=== PATIENT | male | born 1995 | race Caucasian/White ===

== ENCOUNTER 2016-11-27 11:12 | Emergency (ER) | payer BC, OTHER ==
[~2016-11-27] VITALS: Ht 177.8 cm; Wt 111.6 kg
[2016-11-27 11:17] VITALS: TEMP 36.9; Ht 177.8 cm; Wt 111.6 kg
[2016-11-27] MEDS ORDERED: SODIUM CHLORIDE 0.9% 1000ML 1,000 ML IV STA (12:13)
[2016-11-27 12:43] LABS: BASO % 0.4 %; BASO ABS # 0.03 K/uL (0-0.2); COMPLETE YES; EOS % 2.9 %; HEMATOCRIT 44.6 % (42-52); IG% 1.9 %; LYMPH % 26.5 %; MEAN CELL VOLUME 78.4 fL (80-100); MEAN CORPUSCULAR HEMOGLOBIN 27.1 pg (25-34); MEAN CORPUSCULAR HGB CONC 34.5 g/dl (32-36); MEAN PLATELET VOLUME 11.1 fL (7.4-10.4); MONO % 5.4 %; NEUT % 62.9 %; PLATELET COUNT 222 K/uL (130-400); RED BLOOD COUNT 5.69 M/uL (4.7-6.1); WHITE BLOOD COUNT 8.31 K/uL (4.8-10.8)
--- NOTE | 2016-11-27 12:59 | DIAGNOSTIC IMAGING REPORT ---
SOFT TISSUE NECK CLINICAL HISTORY: 20 years-old Male presenting with THROAT SWELLING. TECHNIQUE: Frontal and lateral views of the neck were obtained. COMPARISON: None. FINDINGS: Straightening of normal cervical lordosis likely positional. Normal cervical spine. No prevertebral soft tissue swelling. Soft tissue density in the region of the valleculae could suggest prominent tonsillar adenoidal tissue. No swelling of the epiglottis. The aryepiglottic folds are not as clearly delineated. Airway patent. Lung apices clear. IMPRESSION: Suggestion of prominent tonsillar adenoidal tissue. Electronically signed by: Gabriel Adame M.D. 11/27/2016 12:57 PM Dictated Date/Time: 11/27/2016 12:55 PM
[2016-11-27 13:02] LABS: BUN/CREATININE RATIO 17.6 (10-20); CALCIUM 9.2 mg/dl (8.5-10.1); CREATININE 0.83 mg/dl (0.60-1.40)
[2016-11-27 13:05] LABS: ALB/GLOB RATIO 1.2 (0.9-2); PARTIAL THROMBOPLASTIN RATIO 1.1; PROTHROMBIN TIME (PATIENT) 10.7 SECONDS (9.0-12.0)
[2016-11-27 13:31] LABS: URINE APPEARANCE CLEAR (CLEAR); URINE BILIRUBIN NEG (NEG); URINE COLOR YELLOW; URINE NITRITE NEG (NEG); URINE SPECIFIC GRAVITY 1.022 (1.000-1.030); UROBILINOGEN NEG (NEG)
[2016-11-27 13:40] LABS: MANUAL MICROSCOPIC REQUIRED? NO; REVIEW REQ? NO
[2016-11-27 13:54] LABS: BENZODIAZEPINE, URINE NEG (NEG); COCAINE,URINE NEG (NEG); PHENCYCLIDINE, URINE NEG (NEG)
--- NOTE | 2016-11-27 15:13 | DIAGNOSTIC IMAGING REPORT ---
L VENOUS DOPP LOWER EXT UNILAT CLINICAL HISTORY: 20 years-old Male presenting with LEFT CALF PAIN . TECHNIQUE: Real-time grayscale and color and spectral Doppler ultrasound imaging of the veins of the left lower extremity was performed. Compression and augmentation were also utilized. COMPARISON: None. FINDINGS: Left: Common femoral vein: Patent. Femoral vein: Patent. Greater saphenous vein: Patent. Popliteal vein: Patent. Calf veins: Patent. Other: None. IMPRESSION: No evidence of deep venous thrombosis. Electronically signed by: Gabriel Adame M.D. 11/27/2016 3:12 PM Dictated Date/Time: 11/27/2016 3:11 PM
--- NOTE | 2016-11-27 15:40 | EMERGENCY ROOM VISIT NOTE ---
ED Visit Note First contact with patient: 11:48 CHIEF COMPLAINT: Sharp pain in left calf, sensation of swelling in his throat and shortness of breath. HISTORY OF PRESENT ILLNESS: Patient is an otherwise healthy 20-year-old white male who presents to the emergency department by ALS ambulance for evaluation of left calf pain, with a sensation of swelling in his throat and shortness of breath. His symptoms started about an hour prior to arrival. 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 He states that he noted a sharp pain in his left calf. He states the pain is only to touch, he thinks it was being caused by his jeans rubbing against his leg. He states that when he got the sharp pain he began to feel short of breath and have a sensation that his throat was swelling, making it difficult for him to breathe. He sat down and rested, tried to drink some water, but his symptoms did not improve. He looked at his calf, as he thought that he might have been bitten or stung by something, but did not note any skin injury. He states that he thought the area was a little bit red initially, but that has resolved. He still does note a sharp, localized pain in the left calf to palpation. He is able to walk and bear weight without difficulty. He does have a sense of some swelling in his throat presently, but does not have any difficulty speaking or swallowing. He reports that he is getting over a cold. He denies any chest pain, palpitations or pleuritic symptoms. No skin rashes or hives. He has never had reactions similar to this previously. He felt perfectly well until the incident started about an hour ago. No DVT or PE risk factors or family history. REVIEW OF SYSTEMS: Review of systems as per HPI. All other systems reviewed were negative. 10 systems reviewed. PMH: Electronic medical records are reviewed and summarized as above/below. See Problem List. SOCIAL HISTORY: Patient lives at home. He does not smoke. PHYSICAL EXAM: Vital Signs: Reviewed Nurse's notes. CONSTITUTIONAL: Patient is a pleasant, well-appearing 20-year-old white male who was awake and alert and sitting semiupright on the gurney in no acute distress. No stridor, no conversational dyspnea. He is able to speak in full sentences without difficulty. EYES: Pupils equal, round, reactive to light and accommodation. EOMs intact without nystagmus. Sclera are anicteric. ENT: Tympanic membranes intact, with normal landmarks. External canals are clear. Oral and nasopharynx are clear. Mucous membranes are moist, no lesions , tongue and gums appear normal. NECK: No bruits auscultated. Supple without lymphadenopathy. No thyromegaly. No meningeal signs. Full active range of motion without discomfort. CARDIOVASCULAR: Regular rate and rhythm, with normal S1 and S2, no murmur or gallop or rub is heard. No carotid bruits auscultated. No JVD. Peripheral pulses easy to palpable. RESPIRATORY: Breath sounds equal and clear to auscultation without wheezes, rales, or rhonchi heard. Full and equal chest expansion without accessory muscle use or retractions. GI: Bowel sounds are present. Abdomen is soft, nontender, nondistended. No organomegaly. No pulsatile masses. No guarding or rebound. MUSCULOSKELETAL: Full range of motion of extremities x 4 with good strength. No cyanosis, edema, joint tenderness or swelling. No deformity. The calf is soft, no tenderness to palpation is appreciated. There is no erythema, increased warmth or induration. No palpable cords. No lymphangitic streaking. INTEGUMENTARY: No lesions or rash, normal skin turgor. NEUROLOGICAL: Alert, oriented, and cooperative. Cranial nerves, sensation and strength grossly intact. Pupils round, equal, and react to light, EOMs are full. LYMPH: No lymphadenopathy. EMERGENCY DEPARTMENT COURSE: The patient was seen and examined as above. He presents to the emergency department via ambulance for evaluation of left calf pain, with associated sensation of swelling in his throat. It was reported that his oxygen saturation was low upon initial EMS evaluation, this responded to oxygen administration. His O2 sats have been completely normal on room air upon arrival in the emergency department. He is not tachypneic or hypoxic, has no difficulty speaking, swelling or handling his secretions. IV lock was initiated and laboratory studies were collected. CBC with differential, CMP, coags, urinalysis and urine tox screen were collected. He was monitored on the cardiac catheterization technologist with completely normal vitals. He was hydrated with normal saline solution. Soft tissue neck x-ray was unremarkable. Ultrasound of the left lower extremity did not demonstrate DVT. Laboratory studies did not demonstrate leukocytosis, anemia, platelet abnormality, coagulopathy, electrolyte or renal function abnormalities. Urinalysis was clear, tox screen was negative. The patient was reassessed and made aware of the results of his ED workup. He had no further calf pain. He did not have any further shortness of breath or sensation of swelling in his throat. The etiology of his symptoms is unclear at this time. Certainly he does not have any evidence for airway compromise, abscess, angioedema, anaphylaxis or allergic reaction. He does not have any DVT risk factors. His calf pain may be musculoskeletal in nature. The patient and his family were reassured. He was encouraged to return to normal activities. He can return to the emergency department at any point if his symptoms are worsening. Medication reconciliation: I attest that I have personally reviewed the patient' s current medication list. Blood pressure screening : Patient was found to have normal blood pressure on screening and does not require follow-up. L VENOUS DOPP LOWER EXT UNILAT CLINICAL HISTORY: 20 years-old Male presenting with LEFT CALF PAIN . TECHNIQUE: Real-time grayscale and color and spectral Doppler ultrasound imaging of the veins of the left lower extremity was performed. Compression and augmentation were also utilized. COMPARISON: None. FINDINGS: Left: Common femoral vein: Patent. Femoral vein: Patent. Greater saphenous vein: Patent. Popliteal vein: Patent. Calf veins: Patent. Other: None. IMPRESSION: No evidence of deep venous thrombosis. SOFT TISSUE NECK CLINICAL HISTORY: 20 years-old Male presenting with THROAT SWELLING. TECHNIQUE: Frontal and lateral views of the neck were obtained. COMPARISON: None. FINDINGS: Straightening of normal cervical lordosis likely positional. Normal cervical spine. No prevertebral soft tissue swelling. Soft tissue density in the region of the valleculae could suggest prominent tonsillar adenoidal tissue. No swelling of the epiglottis. The aryepiglottic folds are not as clearly delineated. Airway patent. Lung apices clear. IMPRESSION: Suggestion of prominent tonsillar adenoidal tissue. Problem List Surgical Problems: (1) History of appendectomy Status: Resolved Current/Historical Medications No Active Prescriptions or Reported Meds Allergies Coded Allergies: No Known Allergies (Unverified , 11/27/16) Vital Signs Date Time Temp Pulse Resp B/P (MAP) Pulse Ox O2 Delivery O2 Flow Rate FiO2 11/27/16 16:02 82 18 126/81 98 Room Air 11/27/16 16:02 82 18 126/81 98 11/27/16 15:19 85 18 136/79 99 Room Air 11/27/16 14:43 86 18 131/79 99 Room Air 11/27/16 13:39 71 11/27/16 13:10 70 18 126/79 99 Room Air 11/27/16 11:17 36.9 84 24 143/103 96 Room Air 11/27/16 11:16 76 Laboratory Results 11/27/16 12:30 Red Blood Count 5.69, Mean Corpuscular Volume 78.4, Mean Corpuscular Hemoglobin 27.1, Mean Corpuscular Hemoglobin Concent 34.5, Mean Platelet Volume 11.1, Neutrophils (%) (Auto) 62.9, Lymphocytes (%) (Auto) 26.5, Monocytes (%) (Auto) 5.4, Eosinophils (%) (Auto) 2.9, Basophils (%) (Auto) 0.4, Neutrophils # (Auto) 5.23, Lymphocytes # (Auto) 2.20, Monocytes # (Auto) 0.45, Eosinophils # (Auto) 0.24, Basophils # (Auto) 0.03 11/27/16 12:30 Test 11/27/16 12:30 11/27/16 13:20 White Blood Count 8.31 K/uL (4.8-10.8) Red Blood Count 5.69 M/uL (4.7-6.1) Hemoglobin 15.4 g/dL (14.0-18.0) Hematocrit 44.6 % (42-52) Mean Corpuscular Volume 78.4 fL (80-100) Mean Corpuscular Hemoglobin 27.1 pg (25-34) Mean Corpuscular Hemoglobin Concent 34.5 g/dl (32-36) Platelet Count 222 K/uL (130-400) Mean Platelet Volume 11.1 fL (7.4-10.4) Neutrophils (%) (Auto) 62.9 % Lymphocytes (%) (Auto) 26.5 % Monocytes (%) (Auto) 5.4 % Eosinophils (%) (Auto) 2.9 % Basophils (%) (Auto) 0.4 % Neutrophils # (Auto) 5.23 K/uL (1.4-6.5) Lymphocytes # (Auto) 2.20 K/uL (1.2-3.4) Monocytes # (Auto) 0.45 K/uL (0.11-0.59) Eosinophils # (Auto) 0.24 K/uL (0-0.5) Basophils # (Auto) 0.03 K/uL (0-0.2) RDW Standard Deviation 38.6 fL (36.4-46.3) RDW Coefficient of Variation 13.7 % (11.5-14.5) Immature Granulocyte % (Auto) 1.9 % Immature Granulocyte # (Auto) 0.16 K/uL (0.00-0.02) Prothrombin Time 10.7 SECONDS (9.0-12.0) Prothromb Time International Ratio 1.0 (0.9-1.1) Activated Partial Thromboplast Time 27.8 SECONDS (21.0-31.0) Partial Thromboplastin Ratio 1.1 Anion Gap 7.0 mmol/L (3-11) Est Creatinine Clear Calc Drug Dose 177.6 ml/min Estimated GFR () 146.8 Estimated GFR (Non- 126.7 BUN/Creatinine Ratio 17.6 (10-20) Calcium Level 9.2 mg/dl (8.5-10.1) Total Bilirubin 0.4 mg/dl (0.2-1) Aspartate Amino Transf (AST/SGOT) 17 U/L (15-37) Alanine Aminotransferase (ALT/SGPT) 46 U/L (12-78) Alkaline Phosphatase 76 U/L (45-117) Total Protein 7.3 gm/dl (6.4-8.2) Albumin 4.0 gm/dl (3.4-5.0) Globulin 3.3 gm/dl (2.5-4.0) Albumin/Globulin Ratio 1.2 (0.9-2) Urine Color YELLOW Urine Appearance CLEAR (CLEAR) Urine pH 5.0 (4.5-7.5) Urine Specific [place] 1.022 (1.000-1.030) Urine Protein NEG (NEG) Urine Glucose (UA) NEG (NEG) Urine Ketones NEG (NEG) Urine Occult Blood NEG (NEG) Urine Nitrite NEG (NEG) Urine Bilirubin NEG (NEG) Urine Urobilinogen NEG (NEG) Urine Leukocyte Esterase NEG (NEG) Urine Opiates Screen NEG (NEG) Urine Methadone, Qualitative NEG (NEG) Urine Barbiturates NEG (NEG) Urine Phencyclidine (PCP) Level NEG (NEG) Ur Amphetamine/Methamphetamine NEG (NEG) MDMA (Ecstasy) Screen NEG (NEG) Urine Benzodiazepines Screen NEG (NEG) Urine Cocaine Metabolite NEG (NEG) Urine Marijuana (THC) NEG (NEG) Medications Administered Medications (Trade) Dose Ordered Sig/Ajay Route Start Time Stop Time Status Last Admin Dose Admin Sodium Chloride 1,000 ml @ 999 mls/hr Q1H1M STAT IV 11/27/16 12:13 11/27/16 13:13 DC 11/27/16 12:35 999 MLS/HR Departure Information Impression Primary Impression: Pain of left calf Prescriptions No Active Prescriptions or Reported Meds Referrals No Doctor, Assigned (PCP) Patient Instructions [facility] Additional Instructions Ibuprofen(Motrin, Advil) may be used for fever or pain. Use 600mg every six hours as needed. Take with food. Avoid using more than 2400mg in a 24 hour period. Do not use 2400mg per day for more than three consecutive days without physician direction. Prolonged inappropriate use can lead to stomach upset or ulcers. This medication can be taken if you need to drive, work, or perform activities which may be dangerous when taking narcotic pain medication. (AND/OR) Acetaminophen(Tylenol) may be used for fever or pain. Use 1000mg every six hours as needed. Avoid using more than 3000mg in a 24 hour period. This medication can be taken if you need to drive, work, or perform activities which may be dangerous when taking narcotic pain medication. Rest and avoid any activities that cause pain. May resume normal activity as pain allows. Continue current medications. Return to the ER immediately for any numbness, tingling, severe pain, extreme swelling in the extremity or as needed. Follow up with your family physician as scheduled.
[2016-11-27 16:02] VITALS: BP 126/81; PULSE 82; O2SAT 98
== END 2016-11-27 16:04 | disposition home or self-care (01) ==
LOC: EDBD 11:12 → C.EDC 11:13
DX: M79.662 Pain in left lower leg (principal)